=== PATIENT | male | born 1970 | race Caucasian/White ===

== ENCOUNTER 2023-10-17 23:18 | Emergency (ER) | payer MEDICAID, OTHER ==
[~2023-10-17] VITALS: Ht 167.6 cm; Wt 91.0 kg
[~2023-10-17 23:18] MED LIST: ALBU6.7H15 INH; DILT180T11 MT; ESCI-7 PO; FAMO40TA7 PO; IPRA3AMP9 IH; LEVO-65 MT; LISI20TA31 PO; MED4 MT; METF-414 PO
[2023-10-17 23:23] VITALS: O2SAT 99
[2023-10-18 00:03] LABS: CLARITY URINE CLEAR (CLEAR); COLOR URINE YELLOW (YELLOW); GLUCOSE URINE 3+ (NEGATIVE); KETONES URINE NEGATIVE (NEGATIVE); LEUKOCYTE ESTERASE URINE NEGATIVE (NEGATIVE); NITRITE URINE NEGATIVE (NEGATIVE); OCCULT BLOOD URINE NEGATIVE (NEGATIVE); PH URINE 6.5 (4.5-8.0); PROTEIN URINE NEGATIVE (NEGATIVE); SPECIFIC GRAVITY URINE 1.035 (1.005-1.030); UROBILINOGEN URINE 0.2 E.U./dL (0.2-1.0)
[2023-10-18 00:19] LABS: *AMPHETAMINES SCREEN URINE NEGATIVE (NEGATIVE); *BARBITURATES SCREEN URINE NEGATIVE (NEGATIVE); *BENZODIAZEPINES SCREEN URINE NEGATIVE (NEGATIVE); *COCAINE SCREEN URINE NEGATIVE (NEGATIVE); CANNABINOID URINE SCREEN NEGATIVE (NEGATIVE); ECSTASY MDMA SCREEN URINE NEGATIVE (NEGATIVE); METHADONE URINE SCREEN Neg (NEGATIVE); OPIATES URINE SCREEN NEGATIVE (NEGATIVE); PHENCYCLIDINE URINE SCREEN NEGATIVE (NEGATIVE)
[2023-10-18 00:28] LABS: LACTIC ACID 2.6 mmol/L (0.4-2.0)
[2023-10-18 00:29] LABS: BG BASE EXCESS -1.6 mmol/L (-2.0-2.0); BG CARBOXYHEMOGLOBIN 0.4 % (0.5-1.5); BG DEOXYHEMOGLOBIN 3.4 % (0.0-5.0); BG FRACTION INSPIRED OXYGEN 21; BG HCO3 ACT 22.2 mmol/L (22.0-26.0); BG METHEMOGLOBIN 0.2 % (0.0-1.5); BG OXYGEN SATURATION 96.6 % (92.0-98.5); BG PCO2 35.6 mmHg (35.0-45.0); BG PH 7.413 (7.350-7.450); BG PO2 90.1 mmHg (75.0-100.0); BG TOTAL HEMOGLOBIN 17.6 g/dL (12.0-18.0); BG VENT MODE ROOM AIR
[2023-10-18 00:30] LABS: BACTERIA URINE NONE SEEN; RBC URINE NONE SEEN /hpf (0-2); SQUAMOUS EPITHELIAL CELL URINE NONE SEEN /lpf (RARE/1+); WBC URINE NONE SEEN /hpf (0-2)
[2023-10-18 00:30] LABS: ALANINE AMINOTRANSFERASE 65 IU/L (10-49); ALBUMIN 4.9 g/dL (3.2-4.8); ASPARTATE AMINOTRANSFERASE 31 IU/L (<34); BETA HYDROXYBUTYRATE 0.3 mMol/L (0.0-0.3); BILIRUBIN TOTAL 0.9 mg/dL (0.1-1.0); CARBON DIOXIDE 24 mEq/L (21-32); CHLORIDE 101 mEq/L (98-107); GLUCOSE 372 mg/dL (70-105); HEMATOCRIT. 43.5 % (42.0-52.0); MEAN CORPUSCULAR HEMOGLOBIN 31.5 pg (28.0-32.0); MEAN CORPUSCULAR HGB CONC 34.4 g/dL (31.0-37.0); MEAN CORPUSCULAR VOLUME 91.5 fL (80.0-94.0); MEAN PLATELET VOLUME 9.1 fl (7.4-10.4); PLATELET 122 x1000/uL (130-400); POTASSIUM 4.3 mEq/L (3.5-5.1); PROTEIN TOTAL 6.9 g/dL (6.0-8.3); RED BLOOD CELL COUNT 4.75 mill/uL (4.7-6.1); SODIUM 132 mEq/L (136-145); UREA NITROGEN BLOOD 16 mg/dL (9-23); WHITE BLOOD COUNT 9.8 x1000/uL (4.5-11.0)
[2023-10-18 00:36] LABS: DIFFERENTIAL COMMENT 1
[2023-10-18 01:07] LABS: ETHANOL BLOOD < 10 mg/dL (<10); TROPONIN I HIGH SENSITIVITY < 4 ng/L (3.0-53)
[2023-10-18 01:31] LABS: PLATELET ESTIMATE NORMAL
[2023-10-18] MEDS: SODIUM CHLORIDE 0.9% 1,000 ML IV ONE (02:06)
[2023-10-18] MEDS: METFORMIN HCL 500MG TABLET PO NR (02:16)
[2023-10-18] MEDS ORDERED: METF-414 MT (02:29)
[2023-10-18 03:47] VITALS: BP 130/76; PULSE 80; RESP 18; TEMP 98.3
== END 2023-10-18 04:00 | disposition home or self-care (01) ==
LOC: ER 23:18
DX: E11.65 Type 2 diabetes mellitus with hyperglycemia (principal); I10 Essential (primary) hypertension; Z00.00 Encounter for general adult medical examination without abnormal findings; Z91.148 Patient's other noncompliance with medication regimen for other reason; Z88.2 Allergy status to sulfonamides; Z79.899 Other long term (current) drug therapy
CPT/HCPCS: 36415; 36600; 71045; 80053; 80305; 80320; 81003; 82010; 82375; 82805; 82962; 83605; 83880; 84484; 85025; 86850; 86900; 93005; 96360; 99285; G0480

== ENCOUNTER 2023-12-26 16:06 | Inpatient (IN) | payer MEDICAID ==
[~2023-12-26] VITALS: Ht 165.1 cm; Wt 82.6 kg
[~2023-12-26 16:06] MED LIST changes: +METF-414 MT
[2023-12-26 17:17] LABS: HEMATOCRIT. 41.1 % (42.0-52.0); HEMOGLOBIN. 14.2 g/dL (14.0-18.0); MEAN CORPUSCULAR HEMOGLOBIN 31.8 pg (28.0-32.0); MEAN CORPUSCULAR HGB CONC 34.6 g/dL (31.0-37.0); MEAN CORPUSCULAR VOLUME 92.1 fL (80.0-94.0); MEAN PLATELET VOLUME 9.2 fl (7.4-10.4); PLATELET 156 x1000/uL (130-400); RED BLOOD CELL COUNT 4.47 mill/uL (4.7-6.1); RED CELL DISTRIBUTION WIDTH 14.3 % (11.6-14.6); WHITE BLOOD COUNT 11.4 x1000/uL (4.5-11.0)
[2023-12-26 17:18] LABS: DIFFERENTIAL COMMENT 1
[2023-12-26 17:24] LABS: CHLORIDE 102 mEq/L (98-107); SODIUM 134 mEq/L (136-145)
[2023-12-26 17:25] LABS: CALCIUM 10.1 mg/dL (8.7-10.4); CARBON DIOXIDE 20 mEq/L (21-32)
[2023-12-26 17:30] LABS: GLUCOSE 379 mg/dL (70-105)
[2023-12-26 17:31] LABS: UREA NITROGEN BLOOD 15 mg/dL (9-23)
[2023-12-26 17:37] LABS: ETHANOL BLOOD < 10 mg/dL (<10)
[2023-12-26 17:51] LABS: PLATELET ESTIMATE NORMAL
[2023-12-26 18:35] LABS: ALANINE AMINOTRANSFERASE 75 IU/L (10-49); ASPARTATE AMINOTRANSFERASE 24 IU/L (<34); BILIRUBIN DIRECT 0.4 mg/dL (<=3.0); BILIRUBIN TOTAL 1.1 mg/dL (0.1-1.0)
[2023-12-26] MEDS: SODIUM CHLORIDE 0.9% 1,000 ML IV ONE (18:52)
[2023-12-26] MEDS: METOCLOPRAMIDE HCL 10MG/2ML VIAL IV ONE (18:54)
[2023-12-26 20:37] LABS: CLARITY URINE CLEAR (CLEAR); COLOR URINE YELLOW (YELLOW); GLUCOSE URINE 3+ (NEGATIVE); KETONES URINE NEGATIVE (NEGATIVE); LEUKOCYTE ESTERASE URINE NEGATIVE (NEGATIVE); NITRITE URINE NEGATIVE (NEGATIVE); OCCULT BLOOD URINE NEGATIVE (NEGATIVE); PH URINE 5.5 (4.5-8.0); PROTEIN URINE NEGATIVE (NEGATIVE); SPECIFIC GRAVITY URINE 1.041 (1.005-1.030); UROBILINOGEN URINE 0.2 E.U./dL (0.2-1.0)
[2023-12-26] MEDS ORDERED: PROPOFOL 10MG/ML 100ML 100 ML IV SCH (21:00)
[2023-12-26 21:07] LABS: BACTERIA URINE NONE SEEN; RBC URINE NONE SEEN /hpf (0-2); SQUAMOUS EPITHELIAL CELL URINE NONE SEEN /lpf (RARE/1+); WBC URINE 0-2 /hpf (0-2)
[2023-12-26] MEDS ORDERED: ACETAMINOPHEN 325MG TABLET PO PRN ×2 (21:15)
[2023-12-26] MEDS ORDERED: KCL 20MEQ/100ML PREMIX 100 ML IV PRN (21:15)
[2023-12-26] MEDS ORDERED: INSULIN REGULAR (DRIP) 100 UNITS in SODIUM CHLORIDE 0.9% 99 ML IV SCH (21:15)
[2023-12-26] MEDS ORDERED: DIPHENHYDRAMINE 50MG/ML VIAL IV PRN (21:15)
[2023-12-26] MEDS ORDERED: BLOOD SUGAR DIAGNOSTIC STRIP TEST PRN (21:15)
[2023-12-26] MEDS ORDERED: DEXTROSE 50% WATER 50ML SYRINGE IV PRN ×2 (21:15)
[2023-12-26] MEDS ORDERED: IPRATROPIUM/ALBUTEROL 0.5-3(2.5)MG/3ML NEB HHN PRN (21:15)
[2023-12-26] MEDS ORDERED: ONDANSETRON HCL 4MG/2ML INJ IV PRN (21:15)
[2023-12-26] MEDS: SODIUM CHLORIDE 0.9% 1,000 ML IV SCH (21:15)
[2023-12-26 21:31] LABS: *AMPHETAMINES SCREEN URINE NEGATIVE (NEGATIVE); *BARBITURATES SCREEN URINE NEGATIVE (NEGATIVE); *BENZODIAZEPINES SCREEN URINE NEGATIVE (NEGATIVE); *COCAINE SCREEN URINE NEGATIVE (NEGATIVE); CANNABINOID URINE SCREEN NEGATIVE (NEGATIVE); ECSTASY MDMA SCREEN URINE NEGATIVE (NEGATIVE); METHADONE URINE SCREEN NEGATIVE (NEGATIVE); OPIATES URINE SCREEN NEGATIVE (NEGATIVE); PHENCYCLIDINE URINE SCREEN NEGATIVE (NEGATIVE)
[2023-12-26] MEDS: BLOOD SUGAR DIAGNOSTIC STRIP TEST SCH (21:56)
[2023-12-26 22:04] LABS: BG BASE EXCESS -3.1 mmol/L (-2.0-2.0); BG CARBOXYHEMOGLOBIN 0.3 % (0.5-1.5); BG DEOXYHEMOGLOBIN 3.5 % (0.0-5.0); BG HCO3 ACT 20.1 mmol/L (22.0-26.0); BG METHEMOGLOBIN 0.2 % (0.0-1.5); BG OXYGEN SATURATION 96.5 % (92.0-98.5); BG PCO2 30.8 mmHg (35.0-45.0); BG PH 7.433 (7.350-7.450); BG PO2 92.9 mmHg (75.0-100.0); BG SAMPLE SITE RIGHT BRACHIAL; BG TOTAL HEMOGLOBIN 13.3 g/dL (12.0-18.0); BG VENT MODE ROOM AIR
[2023-12-26] MEDS: INSULIN REGULAR (HUMULIN R) 300UNITS/3ML VIAL IV ONE (23:02)
[2023-12-26] MEDS: INSULIN GLARGINE 100 UNITS/ML SUBCUT SCH (23:06)
[2023-12-26] MEDS: MVI, ADULT NO.1 10 ML, FOLIC ACID 1 MG, THIAMINE HCL 100 MG in SODIUM CHLORIDE 0.9% 1,0... IV SCH (23:08)
[2023-12-27 00:47] LABS: TROPONIN I HIGH SENSITIVITY < 4 ng/L (3.0-53)
[2023-12-27] MEDS: BLOOD SUGAR DIAGNOSTIC STRIP TEST SCH (06:52)
[2023-12-27 07:12] LABS: TROPONIN I HIGH SENSITIVITY < 4 ng/L (3.0-53)
[2023-12-27] MEDS: INSULIN LISPRO 100 UNITS/ML SUBCUT SCH (07:15)
[2023-12-27] MEDS: ENOXAPARIN 40MG/0.4ML SYR SUBCUT SCH (08:37)
[2023-12-27 18:30] VITALS: BP 144/102; PULSE 88; RESP 19; TEMP 97.2
[2023-12-27] MEDS: CLONIDINE 0.1MG TABLET PO PRN (19:06)
[2023-12-27 20:00] VITALS: BP 126/88; PULSE 86; RESP 20; TEMP 98.1
[2023-12-27 20:13] VITALS: BP 126/88; PULSE 86; RESP 18; TEMP 98.2
[2023-12-27 21:27] VITALS: BP 126/88; PULSE 86; TEMP 98.1; O2SAT 98
== END 2023-12-27 21:54 | disposition home or self-care (01) | DRG 420 ==
LOC: ER 16:06 → 5WST 21:06 → EDBEDREQSVC 21:08 → EDBEDREQ 21:08 → EDBEDREQTM 21:08 → EDBEDREQSVC 21:55 → 8WST 12-27 17:52
PROVIDERS: ADMIT Internal Medicine; ATTEND Internal Medicine
DX: E11.65 Type 2 diabetes mellitus with hyperglycemia (principal); E66.9 Obesity, unspecified; I10 Essential (primary) hypertension; J44.9 Chronic obstructive pulmonary disease, unspecified; R00.2 Palpitations; Z68.30 Body mass index [BMI] 30.0-30.9, adult; Z88.2 Allergy status to sulfonamides; Z88.3 Allergy status to other anti-infective agents; Z79.899 Other long term (current) drug therapy; Z88.8 Allergy status to other drugs, medicaments and biological substances
CPT/HCPCS: 36415; 36600; 80048; 80076; 80305; 80320; 81003; 82375; 82805; 82962; 83036; 84484; 85025; 85379; 99291; J1650; J1815; J2765; J3411; J3490; J7030; G0480

== ENCOUNTER 2024-01-03 18:05 | Emergency (ER) | payer MEDICAID ==
[~2024-01-03] VITALS: Ht 165.1 cm; Wt 82.0 kg
[2024-01-03 18:37] VITALS: BP 101/68; PULSE 112; RESP 12; TEMP 98.4; O2SAT 95
[2024-01-03 20:00] LABS: BASOPHILS % 0.4 % (0.0-2.0); DIFFERENTIAL COMMENT 1; EOSINOPHILS % 2.1 % (0.0-5.0); HEMATOCRIT. 41.3 % (42.0-52.0); HEMOGLOBIN. 14.9 g/dL (14.0-18.0); MEAN CORPUSCULAR HEMOGLOBIN 32.4 pg (28.0-32.0); MEAN CORPUSCULAR HGB CONC 36.1 g/dL (31.0-37.0); MEAN CORPUSCULAR VOLUME 89.8 fL (80.0-94.0); MEAN PLATELET VOLUME 8.7 fl (7.4-10.4); MONOCYTES % 14.2 % (2.0-8.0); NEUTROPHILS % 56.3 % (40.0-76.0); PLATELET 138 x1000/uL (130-400); RED CELL DISTRIBUTION WIDTH 13.9 % (11.6-14.6); WHITE BLOOD COUNT 6.3 x1000/uL (4.5-11.0)
[2024-01-03 20:07] LABS: CHLORIDE 108 mEq/L (98-107); POTASSIUM 3.9 mEq/L (3.5-5.1); SODIUM 140 mEq/L (136-145)
[2024-01-03 20:08] LABS: CARBON DIOXIDE 27 mEq/L (21-32)
[2024-01-03 20:13] LABS: CREATININE 1.1 mg/dL (0.6-1.3); UREA NITROGEN BLOOD 14 mg/dL (9-23)
[2024-01-03 20:31] LABS: GLUCOSE 221 mg/dL (70-105); TROPONIN I HIGH SENSITIVITY < 4 ng/L (3.0-53)
== END 2024-01-03 22:29 | disposition left against medical advice (07) ==
LOC: ER 18:05
DX: R07.89 Other chest pain (principal); E11.9 Type 2 diabetes mellitus without complications; J45.909 Unspecified asthma, uncomplicated; Z88.1 Allergy status to other antibiotic agents; Z88.2 Allergy status to sulfonamides; Z79.899 Other long term (current) drug therapy; Z98.890 Other specified postprocedural states; Z90.49 Acquired absence of other specified parts of digestive tract
CPT/HCPCS: 36415; 71045; 80048; 83880; 84484; 85025; 93005; 99285

== ENCOUNTER 2024-01-11 22:14 | Emergency (ER) | payer MEDICAID ==
[2024-01-11 22:56] VITALS: PULSE 128
== END 2024-01-12 00:18 | disposition left against medical advice (07) ==
LOC: ER 22:14
DX: R73.9 Hyperglycemia, unspecified (principal); Z53.21 Procedure and treatment not carried out due to patient leaving prior to being seen by health care provider